=== PATIENT | female | born 1940 | race Caucasian/White ===

== ENCOUNTER 2019-09-02 10:47 | Emergency (ER) | payer MEDICARE ==
[2019-09-02 11:10] VITALS: BP 178/54; PULSE 68
[2019-09-02] MEDS ORDERED: Ondansetron 4 MG/2 ML SDV IVPUSH ONE (11:17)
[2019-09-02] MEDS ORDERED: Ondansetron 4 MG/2 ML SDV ONE (11:18)
--- NOTE | 2019-09-02 11:22 | EDM.PDOC ---
ED HPI GENERAL MEDICAL PROBLEM - General Chief Complaint: Headache Stated Complaint: HEADACHE VOMITING Time Seen by Provider: 09/02/19 11:18 Source of Information: Reports: Patient, Family History Limitations: Reports: No Limitations - History of Present Illness INITIAL COMMENTS - FREE TEXT/NARRATIVE: pt is having the worse headache she has ever had. She does have a long history of migraine headaches. She is vomitiong and very weak. She would have fallen to the floor had someone not caught her. Onset: Today, Sudden, Other ( This was a very sudden onset. ) Duration: Hour(s): Location: Reports: Head Associated Symptoms: Reports: Headaches, Nausea/Vomiting - Related Data Allergies Allergy/AdvReac Type Severity Reaction Status Date / Time meperidine [From Demerol] Allergy Headache Verified 09/02/19 10:58 Home Meds: Home Meds Aspirin [Halfprin] 1 tab PO DAILY 08/31/16 [History] Ergocalciferol (Vitamin D2) [Vitamin D2] 1 tab PO DAILY 08/31/16 [History] Furosemide 1 tab PO DAILY 08/31/16 [History] Loratadine [Claritin] 1 tab PO DAILY 08/31/16 [History] Metoprolol Succinate [Toprol XL] 1 tab PO DAILY 08/31/16 [History] Montelukast [Singulair] 1 tab PO BEDTIME 08/31/16 [History] SUMAtriptan [Imitrex] 1 tab PO ASDIRECTED PRN 08/31/16 [History] Warfarin [Coumadin] 3 mg PO DAILY 08/31/16 [History] Past Medical History HEENT History: Reports: Allergic Rhinitis, Cataract Cardiovascular History: Reports: Afib, Hypertension Gastrointestinal History: Reports: Other (See Below) Other Gastrointestinal History: abdominal hernia Neurological History: Reports: Migraines Hematologic History: Reports: Anticoagulation Therapy Oncologic (Cancer) History: Reports: Other (See Below) Other Oncologic History: skin cancer Dermatologic History: Reports: Other (See Below) Other Dermatologic History: skin cancer - Past Surgical History Cardiovascular Surgical History: Reports: Valve Replacement Social & Family History - Tobacco Use Smoking Status *Q: Never Smoker ED ROS GENERAL - Review of Systems Review Of Systems: See Below Constitutional: Reports: Diaphoresis HEENT: Reports: Other (pt is feeling dizzy. ) Respiratory: Reports: No Symptoms Cardiovascular: Reports: No Symptoms Endocrine: Reports: No Symptoms GI/Abdominal: Reports: Nausea, Vomiting : Reports: No Symptoms Musculoskeletal: Reports: No Symptoms Skin: Reports: No Symptoms Neurological: Reports: Dizziness, Headache Psychiatric: Reports: Anxiety - Physical Exam Exam: See Below Text/Narrative:: pt is very vague with her answers. She states this is the worst headache she has had. She states it came on very suddenly and after that she was bearly able to stand. Exam Limited By: No Limitations General Appearance: Alert, Anxious, Severe Distress, Other (pupils are equal and reactive. ) Ears: Normal TMs Nose: Normal Inspection Throat/Mouth: Normal Inspection Head Exam: Atraumatic Neck: Normal Inspection Respiratory/Chest: No Respiratory Distress Cardiovascular: Regular Rate, Rhythm GI/Abdominal: Soft, Non-Tender Rectal (Female) Exam: Deferred Course - Vital Signs Last Recorded V/S: Last Vital Signs Temp 35.9 C L 09/02/19 11:06 Pulse 68 09/02/19 11:06 Resp 14 09/02/19 11:06 BP 178/54 H 09/02/19 11:06 Pulse Ox 98 09/02/19 11:06 - Orders/Labs/Meds Labs: Laboratory Tests 09/02/19 09/02/19 09/02/19 Range/Units 11:15 11:18 11:40 WBC 7.1 (4.5-11.0) K/uL RBC 4.50 (3.30-5.50) M/uL Hgb 13.1 (12.0-15.0) g/dL Hct 40.5 (36.0-48.0) % MCV 90 (80-98) fL MCH 29 (27-31) pg MCHC 32 (32-36) % Plt Count 162 (150-400) K/uL Neut % (Auto) 82 H (36-66) % Lymph % (Auto) 10 L (24-44) % Bowie % (Auto) 8 H (2-6) % Eos % (Auto) 0 L (2-4) % Baso % (Auto) 0 (0-1) % PT 28.1 H (9.5-12.0) sec INR 2.76 H D (0.80-1.20) Sodium 144 (140-148) mmol/L Potassium 3.9 (3.6-5.2) mmol/L Chloride 106 (100-108) mmol/L Carbon Dioxide 28 (21-32) mmol/L Anion Gap 10.2 (5.0-14.0) mmol/L BUN 19 H (7-18) mg/dL Creatinine 0.7 (0.6-1.0) mg/dL Est Cr Clr Drug Dosing 60.56 mL/min Estimated GFR (MDRD) > 60 (>60) Glucose 118 H (74-106) mg/dL Calcium 8.9 (8.5-10.1) mg/dL Total Bilirubin 0.7 (0.2-1.0) mg/dL AST 23 (15-37) U/L ALT 20 (12-78) U/L Alkaline Phosphatase 76 (46-116) U/L Total Protein 7.4 (6.4-8.2) g/dL Albumin 3.8 (3.4-5.0) g/dL Globulin 3.6 H (2.3-3.5) g/dL Albumin/Globulin Ratio 1.1 L (1.2-2.2) Meds: Medications Discontinued Medications Generic Name Dose Route Start Last Admin Trade Name Freq PRN Reason Stop Dose Admin Diphenhydramine HCl 25 mg 09/02/19 11:36 09/02/19 11:49 Benadryl IVPUSH 09/02/19 11:37 25 mg ONETIME ONE Administration Hydromorphone HCl 0.5 mg 09/02/19 12:06 09/02/19 12:14 Dilaudid IVPUSH 09/02/19 12:07 0.5 mg ONETIME ONE Administration Hydromorphone HCl 0.5 mg 09/02/19 13:33 09/02/19 13:37 Dilaudid IVPUSH 09/02/19 13:34 0.5 mg ONETIME ONE Administration Sodium Chloride 1,000 mls @ 999 mls/hr 09/02/19 12:15 09/02/19 12:14 Normal Saline IV 999 mls/hr ASDIRECTED ANNELISE Administration Ketorolac Tromethamine 30 mg 09/02/19 11:35 09/02/19 11:49 Toradol IVPUSH 09/02/19 11:36 30 mg ONETIME ONE Administration Lorazepam 0.5 mg 09/02/19 14:43 09/02/19 14:48 Ativan PO 09/02/19 14:44 0.5 mg ONETIME ONE Administration Meclizine HCl 25 mg 09/02/19 14:43 09/02/19 14:48 Antivert PO 09/02/19 14:44 25 mg ONETIME ONE Administration Ondansetron HCl 4 mg 09/02/19 11:17 09/02/19 11:21 Zofran IVPUSH 09/02/19 11:18 4 mg ONETIME ONE Administration Ondansetron HCl Confirm 09/02/19 11:18 Zofran Administered 09/02/19 11:19 Dose 4 mg .ROUTE .STK-MED ONE Prochlorperazine Edisylate 10 mg 09/02/19 13:32 09/02/19 13:37 Compazine IVPUSH 09/02/19 13:33 10 mg ONETIME ONE Administration - Re-Assessments/Exams Free Text/Narrative Re-Assessment/Exam: 09/03/19 07:43 pt has fair control of her pain. She now has a sensation of vertigo and feels unstable. She did have a cat scan of the head which was normal with no acute findings. Departure - Departure Time of Disposition: 14:44 Disposition: Home, Self-Care 01 Condition: Fair Clinical Impression: Migraine, Dehydration - Discharge Information Instructions: Migraine Headache, [id number], Dehydration, Adult, [id number] Referrals: Laverne Jackman CNM [Primary Care Provider] - Forms: ED Department Discharge Care Plan Goals: rest, zoforan 4mg q6h prn for nausea rtc if the vertigo continues. Sepsis Event Note - Evaluation Sepsis Screening Result: No Definite Risk - Focused Exam Date Exam was Performed: 09/03/19 Time Exam was Performed: 07:41
[2019-09-02] MEDS ORDERED: Ketorolac 30 MG/ML SDV IVPUSH ONE (11:35)
[2019-09-02] MEDS ORDERED: diphenhydrAMINE 50 MG/ML SDV IVPUSH ONE (11:36)
[2019-09-02] MEDS ORDERED: HYDROmorphone 0.5 MG/0.5 ML Syringe IVPUSH ONE ×2 (12:06→13:33)
--- NOTE | 2019-09-02 12:06 | CRLCT ---
INDICATION: Severe headache. TECHNIQUE: Noncontrast axial images with coronal reconstructions. COMPARISON: None. FINDINGS: There is no abnormal intracranial mass effect or midline shift. No intracranial hemorrhage. Mild periventricular white matter changes are likely related to chronic small vessel disease. A few small remote lacunar infarcts are seen in the cerebellum. CSF spaces are age-appropriate. No acute bony abnormality. The visualized portions of the paranasal sinuses and mastoids are clear. IMPRESSION: No CT evidence of an acute intracranial abnormality. Dictated by Alejandro Martinez MD @ 09/02/2019 12:03:59 PM Please note that all CT scans at this facility use dose modulation, iterative reconstruction, and/or weight-based dosing when appropriate to reduce radiation dose to as low as reasonably achievable. Dictated by: Alejandro Martinez MD @ 09/02/2019 12:04:04 (Electronically Signed)
[2019-09-02] MEDS ORDERED: Sodium Chloride 0.9% 1,000 ML IV SCH (12:15)
[2019-09-02] MEDS ORDERED: Prochlorperazine 10 MG/2 ML SDV IVPUSH ONE (13:32)
[2019-09-02] MEDS ORDERED: LORazepam 0.5 MG Tab PO ONE (14:43)
[2019-09-02] MEDS ORDERED: Meclizine 25 MG Tab PO ONE (14:43)
== END 2019-09-02 15:18 | disposition home or self-care (01) ==
LOC: JP.ED 10:47
DX: G43.909 Migraine, unspecified, not intractable, without status migrainosus (principal); E86.0 Dehydration; I10 Essential (primary) hypertension; I48.91 Unspecified atrial fibrillation; Z88.5 Allergy status to narcotic agent; Z79.82 Long term (current) use of aspirin; Z79.899 Other long term (current) drug therapy; Z79.01 Long term (current) use of anticoagulants; Z85.828 Personal history of other malignant neoplasm of skin
CPT/HCPCS: 36415; 70450; 80053; 85025; 85610; 96361; 96374; 96375; 96376; 99284; A9270; J0780; J1170; J1200; J1885; J2405; J7030

== ENCOUNTER 2020-02-21 10:02 | Emergency (ER) | payer MEDICARE, OTHER ==
[2020-02-21] MEDS ORDERED: Furosemide 40 MG/4 ML VIAL IVPUSH ONE (10:08)
[2020-02-21] MEDS ORDERED: Sodium Chloride 0.9% 1,000 ML IV SCH (10:15)
[2020-02-21 10:17] VITALS: PULSE 54
--- NOTE | 2020-02-21 10:18 | EDM.PDOC ---
ED HPI GENERAL MEDICAL PROBLEM - General Chief Complaint: Cardiovascular Problem Stated Complaint: low heart rate Time Seen by Provider: 02/21/20 10:05 Source of Information: Reports: Patient, Provider, Other (The patient's clinic provider: Head) History Limitations: Reports: No Limitations ( to inform me of the patient) - History of Present Illness INITIAL COMMENTS - FREE TEXT/NARRATIVE: The patient claims she's had no symptoms such as fatigue, dizziness when she stands up, fever, or chest pain. Sltly more SOB than usual. Clinic provider noted markedly slow heart rate.. The patient states she did take her metoprolol this morning but not her "water pill" because she has to drive to another town to grain [place] her and does not want to stop to use the bathroom Onset: Today Quality: Reports: Other (No pain) - Related Data Allergies Allergy/AdvReac Type Severity Reaction Status Date / Time meperidine [From Demerol] Allergy Headache Verified 02/21/20 10:17 Home Meds: Home Meds Aspirin [Halfprin] 1 tab PO DAILY 08/31/16 [History] Ergocalciferol (Vitamin D2) [Vitamin D2] 1 tab PO DAILY 08/31/16 [History] Furosemide 1 tab PO DAILY 08/31/16 [History] Loratadine [Claritin] 1 tab PO DAILY 08/31/16 [History] Metoprolol Succinate [Toprol XL] 1 tab PO DAILY 08/31/16 [History] Montelukast [Singulair] 1 tab PO BEDTIME 08/31/16 [History] SUMAtriptan [Imitrex] 1 tab PO ASDIRECTED PRN 08/31/16 [History] Calcium Carbonate [Calcium] 500 mg PO DAILY 02/21/20 [History] Warfarin Sodium 3 mg PO DAILY 02/21/20 [History] Past Medical History HEENT History: Reports: Allergic Rhinitis, Cataract Cardiovascular History: Reports: Afib, Hypertension Gastrointestinal History: Reports: Other (See Below) Other Gastrointestinal History: abdominal hernia Neurological History: Reports: Migraines Hematologic History: Reports: Anticoagulation Therapy Oncologic (Cancer) History: Reports: Other (See Below) Other Oncologic History: skin cancer Dermatologic History: Reports: Other (See Below) Other Dermatologic History: skin cancer - Past Surgical History Cardiovascular Surgical History: Reports: Valve Replacement ED ROS GENERAL - Review of Systems Review Of Systems: See Below Constitutional: Denies: Fever HEENT: Reports: No Symptoms Respiratory: Reports: Shortness of Breath. Denies: Wheezing, Pleuritic Chest Pain, Cough Cardiovascular: Reports: Dyspnea on Exertion, Edema. Denies: Chest Pain GI/Abdominal: Reports: No Symptoms Musculoskeletal: Reports: No Symptoms Skin: Reports: No Symptoms Neurological: Reports: No Symptoms ED EXAM, GENERAL - Physical Exam Exam: See Below Exam Limited By: No Limitations General Appearance: Alert, WD/WN, Obese Throat/Mouth: Normal Inspection Head: Atraumatic, Normocephalic Respiratory/Chest: No Respiratory Distress, Lungs Clear Cardiovascular: No Gallop, No JVD, No Rub, Bradycardia GI/Abdominal: Soft, Non-Tender Extremities: Non-Tender, Pedal Edema EKG INTERPRETATION EKG Date: 02/21/20 Time: 10:05 Rhythm: A-Fib Rate (Beats/Min): 35 Wagoner: Normal P-Wave: Absent ST-T: Normal Course - Vital Signs Text/Narrative:: Because of shortness of breath and increased edema will initially administer 40 mg of Lasix pending results of laboratory studies and x-ray. When I went back into the patient's room at 1040, the patient was in absolutely no distress and her heart rate was 51 on the bedside monitor. Chest x-ray shows no cardiac enlargement. There are sternotomy wires from the patient's aortic valve surgery. No evidence of CHF. No orthostasis noted on testing. Patient's heart rate has now been consistently in the 40s and 50s. No Evidence of myocardial infarction. Last Recorded V/S: Last Vital Signs Temp 36.4 C 02/21/20 10:12 Pulse 54 L 02/21/20 10:12 Resp 18 02/21/20 10:12 BP Pulse Ox 100 02/21/20 10:12 Orthostatic Blood Pressure [ 147/127 Standing] Orthostatic Blood Pressure [ 188/71 Sitting] Orthostatic Blood Pressure [ 198/52 Supine] - Orders/Labs/Meds Orders: Active Orders 24 hr Category Date Time Status EKG Documentation Completion [RC] ASDIRECTED Care 02/21/20 10:05 Active Orthostatic Vital Signs [RC] ASDIRECTED Care 02/21/20 11:10 Active Chest 1V Frontal [CR] Stat Exams 02/21/20 10:06 Taken UA W/MICROSCOPIC [URIN] Urgent Lab 02/21/20 10:38 Ordered Sodium Chloride 0.9% [Normal Saline] 1,000 ml Med 02/21/20 10:15 Active IV ASDIRECTED EKG 12 Lead [EK] Urgent Ther 02/21/20 10:04 Ordered Medication Orders Sodium Chloride (Normal Saline) 1,000 mls @ 50 mls/hr IV ASDIRECTED ANNELISE Last Admin: 02/21/20 11:04 Dose: 50 mls/hr Documented by: PREILOR Labs: Laboratory Tests 02/21/20 02/21/20 02/21/20 Range/Units 10:04 10:25 10:25 WBC 5.6 (4.5-11.0) K/uL RBC 4.66 (3.30-5.50) M/uL Hgb 13.6 (12.0-15.0) g/dL Hct 42.2 (36.0-48.0) % MCV 91 (80-98) fL MCH 29 (27-31) pg MCHC 32 (32-36) % Plt Count 163 (150-400) K/uL PT (9.5-12.0) sec INR (0.80-1.20) Sodium 140 (140-148) mmol/L Potassium 4.3 (3.6-5.2) mmol/L Chloride 105 (100-108) mmol/L Carbon Dioxide 29 (21-32) mmol/L Anion Gap 6.1 (5.0-14.0) mmol/L BUN 21 H (7-18) mg/dL Creatinine 0.9 (0.6-1.0) mg/dL Est Cr Clr Drug Dosing 43.30 mL/min Estimated GFR (MDRD) > 60 (>60) Glucose 97 (74-106) mg/dL Lactic Acid (0.4-2.0) mmol/L Calcium 9.2 (8.5-10.1) mg/dL Total Bilirubin 0.7 (0.2-1.0) mg/dL AST 23 (15-37) U/L ALT 19 (12-78) U/L Alkaline Phosphatase 80 (46-116) U/L Troponin I < 0.017 (0.000-0.056) ng/mL NT-Pro-B Natriuret Pep 769 H (5-450) pg/mL Total Protein 7.4 (6.4-8.2) g/dL Albumin 3.9 (3.4-5.0) g/dL Globulin 3.5 (2.3-3.5) g/dL Albumin/Globulin Ratio 1.1 L (1.2-2.2) TSH, Ultra Sensitive (0.358-3.740) uIU/mL 02/21/20 02/21/20 02/21/20 Range/Units 10:25 10:25 10:25 WBC (4.5-11.0) K/uL RBC (3.30-5.50) M/uL Hgb (12.0-15.0) g/dL Hct (36.0-48.0) % MCV (80-98) fL MCH (27-31) pg MCHC (32-36) % Plt Count (150-400) K/uL PT 22.2 H (9.5-12.0) sec INR 2.07 H (0.80-1.20) Sodium (140-148) mmol/L Potassium (3.6-5.2) mmol/L Chloride (100-108) mmol/L Carbon Dioxide (21-32) mmol/L Anion Gap (5.0-14.0) mmol/L BUN (7-18) mg/dL Creatinine (0.6-1.0) mg/dL Est Cr Clr Drug Dosing mL/min Estimated GFR (MDRD) (>60) Glucose (74-106) mg/dL Lactic Acid 1.2 (0.4-2.0) mmol/L Calcium (8.5-10.1) mg/dL Total Bilirubin (0.2-1.0) mg/dL AST (15-37) U/L ALT (12-78) U/L Alkaline Phosphatase (46-116) U/L Troponin I (0.000-0.056) ng/mL NT-Pro-B Natriuret Pep (5-450) pg/mL Total Protein (6.4-8.2) g/dL Albumin (3.4-5.0) g/dL Globulin (2.3-3.5) g/dL Albumin/Globulin Ratio (1.2-2.2) TSH, Ultra Sensitive 1.051 (0.358-3.740) uIU/mL Meds: Medications Generic Name Dose Route Start Last Admin Trade Name Freq PRN Reason Stop Dose Admin Sodium Chloride 1,000 mls @ 50 mls/hr 02/21/20 10:15 02/21/20 11:04 Normal Saline IV 50 mls/hr ASDIRECTED ANNELISE Administration Discontinued Medications Generic Name Dose Route Start Last Admin Trade Name Cassandra PRN Reason Stop Dose Admin Furosemide 40 mg 02/21/20 10:08 02/21/20 11:05 Lasix IVPUSH 02/21/20 10:09 40 mg ONETIME ONE Administration Departure - Departure Time of Disposition: 12:24 Disposition: Home, Self-Care 01 Clinical Impression: Bradycardia with 31-40 beats per minute Congestive heart failure Qualifiers: Heart failure type: combined systolic and diastolic Heart failure chronicity: acute on chronic Qualified Code(s): I50.43 - Acute on chronic combined systolic (congestive) and diastolic (congestive) heart failure Instructions: Heart Failure, Self Care, [id number], Bradycardia, Adult Referrals: Laverne Jackman CNM [Primary Care Provider] - Forms: ED Department Discharge Additional Instructions: Portance that you continue utilizing diuretic medication as prescribed. Skip or hold doses. Decrease your metoprolol from 50 mg/day to 25 mg/day. Follow-up with your primary care doctor in the next 3 to 4 days Sepsis Event Note (ED) - Focused Exam Vital Signs: Vital Signs Temp Pulse Resp Pulse Ox 02/21/20 10:12 36.4 C 54 L 18 100 - My Orders Last 24 Hours: My Active Orders 02/21/20 10:04 EKG 12 Lead [EK] Urgent 02/21/20 10:05 EKG Documentation Completion [RC] ASDIRECTED 02/21/20 10:06 Chest 1V Frontal [CR] Stat 02/21/20 10:15 Sodium Chloride 0.9% [Normal Saline] 1,000 ml IV ASDIRECTED 02/21/20 10:38 UA W/MICROSCOPIC [URIN] Urgent 02/21/20 11:10 Orthostatic Vital Signs [RC] ASDIRECTED - Assessment/Plan Last 24 Hours: My Active Orders 02/21/20 10:04 EKG 12 Lead [EK] Urgent 02/21/20 10:05 EKG Documentation Completion [RC] ASDIRECTED 02/21/20 10:06 Chest 1V Frontal [CR] Stat 02/21/20 10:15 Sodium Chloride 0.9% [Normal Saline] 1,000 ml IV ASDIRECTED 02/21/20 10:38 UA W/MICROSCOPIC [URIN] Urgent 02/21/20 11:10 Orthostatic Vital Signs [RC] ASDIRECTED
--- NOTE | 2020-02-22 09:47 | CR ---
CHEST: Portable 02/21/2020 10:36 AM CLINICAL HISTORY:SOB COMPARISON:CT chest 2018 FINDINGS: The heart is enlarged. Patient has had previous sternotomy for aortic valve replacement. There are atherosclerotic changes in the aorta. No infiltrates are seen. There are no effusions. Impression: Cardiomegaly No acute cardiopulmonary process
== END 2020-02-21 12:45 | disposition home or self-care (01) ==
LOC: JP.ED 10:02
DX: I11.0 Hypertensive heart disease with heart failure (principal); I50.43 Acute on chronic combined systolic (congestive) and diastolic (congestive) heart failure; I48.91 Unspecified atrial fibrillation; G43.909 Migraine, unspecified, not intractable, without status migrainosus; Z79.82 Long term (current) use of aspirin; Z79.01 Long term (current) use of anticoagulants; Z79.899 Other long term (current) drug therapy
CPT/HCPCS: 36415; 71045; 80053; 83605; 83880; 84443; 84484; 85027; 85610; 93005; 96374; 99285; J1940; J7030

== ENCOUNTER 2023-05-16 17:36 | Emergency (ER) | payer MEDICARE, OTHER ==
[2023-05-16] MEDS ORDERED: Sodium Chloride 0.9% 10 ML Syringe FLUSH PRN (17:43)
[2023-05-16] MEDS ORDERED: Ondansetron 4 MG/2 ML SDV IVPUSH ONE (17:43)
[2023-05-16] MEDS ORDERED: diphenhydrAMINE 50 MG/ML SDV IVPUSH ONE (17:44)
[2023-05-16] MEDS ORDERED: Sodium Chloride 0.9% 500 ML IV SCH (17:45)
[2023-05-16] MEDS ORDERED: Sodium Chloride 0.9% 1,000 ML IV SCH (17:45)
[2023-05-16] MEDS ORDERED: Naloxone 0.4 MG/ML SDV IVPUSH PRN (17:51)
[2023-05-16] MEDS ORDERED: HYDROmorphone 0.5 MG/0.5 ML Syringe IVPUSH ONE (17:51)
[2023-05-16] MEDS ORDERED: Ketorolac 15 MG/ML SDV IVPUSH ONE (17:51)
[2023-05-16 17:57] LABS: BASOPHILS ABSOLUTE AUTO 0.04 K/uL (0.00-0.10); BASOPHILS PERCENT AUTO 0.6 % (0.1-1.3); EOSINOPHILS PERCENT AUTO 0.3 % (0.0-5.4); HEMATOCRIT 35.1 % (34.3-46.0); HEMOGLOBIN 11.8 g/dL (11.2-15.5); IMMATURE GRAN PERCENT AUTO 0.3 % (0.0-0.7); LYMPHOCYTES PERCENT AUTO 17.9 % (11.4-47.7); MEAN CORPUSCULAR HEMOGLOBIN 30.4 pg (31.6-35.5); MEAN CORPUSCULAR HGB CONC 33.6 g/dL (31.6-35.5); MEAN CORPUSCULAR VOLUME 90.5 fL (81.4-99.0); MONOCYTES PERCENT AUTO 9.6 % (3.3-12.6); NEUTROPHILS ABSOLUTE AUTO 5.18 K/uL (1.0-7.6); NEUTROPHILS PERCENT AUTO 71.3 % (40.0-78.1); PLATELET COUNT,PLT 183 K/uL (130-375); RED BLOOD CELL COUNT 3.88 M/uL (3.77-5.24); WHITE BLOOD CELL COUNT,WBC 7.3 K/uL (3.2-11.0)
[2023-05-16 18:00] LABS: EOSINOPHILS ABSOLUTE AUTO 0.02 K/uL (0.00-0.40); IMMATURE GRAN ABSOLUTE AUTO 0.02 K/uL (0.00-0.23)
[2023-05-16 18:26] LABS: A/G RATIO 1.1 (1.2-2.2); ALANINE AMINOTRANSFERASE,ALT 9 U/L (12-78); ALKALINE PHOSPHATASE 78 U/L (46-116); ANION GAP 10.1 mmol/L (5.0-14.0); ASPARTATE AMNIOTRANSFERASE,AST 16 U/L (15-37); BILIRUBIN TOTAL 0.6 mg/dL (0.2-1.0); BLOOD UREA NITROGEN,BUN 20 mg/dL (7-18); CALCIUM 8.9 mg/dL (8.5-10.1); CARBON DIOXIDE,CO2 27 mmol/L (21-32); CHLORIDE,CL 103 mmol/L (100-108); CREATININE 0.9 mg/dL (0.6-1.0); EST CRCL DRUG DOSING (CG) 42.33 mL/min; ESTIMATED GFR 64 mL/min (>60); GLUCOSE RANDOM 108 mg/dL (74-106); MAGNESIUM 2.3 mg/dL (1.8-2.4); PROTEIN TOTAL,TP 7.7 g/dL (6.4-8.2); SODIUM,NA 140 mmol/L (140-148); TSH ULTRASENSITIVE 1.203 uIU/mL (0.358-3.740)
[2023-05-16] MEDS ORDERED: Metoclopramide 10 MG/2 ML SDV IVPUSH ONE (20:22)
[2023-05-16] MEDS ORDERED: Famotidine 20 MG/2 ML SDV IVPUSH ONE (20:22)
[2023-05-16 21:12] VITALS: BP 154/52; PULSE 41
[2023-05-16] MEDS ORDERED: Prochlorperazine 10 MG/2 ML SDV IVPUSH ONE (22:01)
== END 2023-05-16 23:12 | disposition home or self-care (01) ==
LOC: JP.ED 17:36
DX: G43.909 Migraine, unspecified, not intractable, without status migrainosus (principal); I48.91 Unspecified atrial fibrillation; I10 Essential (primary) hypertension; Z79.01 Long term (current) use of anticoagulants; Z88.5 Allergy status to narcotic agent; Z79.82 Long term (current) use of aspirin; Z79.899 Other long term (current) drug therapy
CPT/HCPCS: 36415; 80053; 83735; 84443; 85025; 96361; 96374; 96375; 99284; J0780; J1170; J1200; J1885; J2310; J2405; J2765; J3490; J7030; 99283